=== PATIENT | male | born 1960 | race Two or more races ===

== ENCOUNTER → 2018-10-19 | Day surgery (SDC) | payer SELFPAY ==
[~2018-10-19] MED LIST: FENTANYL CITRATE/PF 100MCG/2 ML INJ ONE; GLUCOVANCE PO; LANTUS 3ML100 UNITS/ SC; LISINOPRIL2.5 MG PO; MIDAZOLAM HCL 2 MG/2 ML VIAL ONE; OR PHACO EYE KIT ONE; PREOP PHACO EYE KIT ONE
[2018-10-19 14:25] VITALS: BP 155/92
== END | disposition home or self-care (01) ==
LOC: OR 09:53
PROVIDERS: ATTEND Ophthalmology
DX: H25.11 Age-related nuclear cataract, right eye (principal); I10 Essential (primary) hypertension; E11.9 Type 2 diabetes mellitus without complications; Z79.4 Long term (current) use of insulin
CPT/HCPCS: 36415; 66984; 82948; J2250; V2632